=== PATIENT | female | born 1960 | race Caucasian/White ===

== ENCOUNTER → 2019-03-26 | Outpatient (CLI) | payer BC ==
--- NOTE | 2019-03-26 15:54 | RAD ---
EXAM: 1. AP and lateral views left hip 2. AP and lateral views left femur DATE: 03/26/2019 12:00 AM INDICATION: Left leg pain, left hip pain COMPARISON: No Prior FINDINGS/ IMPRESSION: 1. There is no evidence for acute fracture or dislocation. 2. Joint spaces are preserved without significant degenerative/proliferative change. Electronically signed by: Harry Fatima MD (03/26/2019 3:50 PM) [facility]
--- NOTE | 2019-03-26 15:54 | RAD ---
EXAM: 1. AP and lateral views left hip 2. AP and lateral views left femur DATE: 03/26/2019 12:00 AM INDICATION: Left leg pain, left hip pain COMPARISON: No Prior FINDINGS/ IMPRESSION: 1. There is no evidence for acute fracture or dislocation. 2. Joint spaces are preserved without significant degenerative/proliferative change. Electronically signed by: Harry Fatima MD (03/26/2019 3:50 PM) [facility]
== END | disposition home or self-care (01) ==
LOC: RAD 11:58
PROVIDERS: ATTEND Family Medicine
DX: M25.552 Pain in left hip (principal)
CPT/HCPCS: 73502; 73552